=== PATIENT | female | born 1995 | race Caucasian/White ===

== ENCOUNTER 2020-09-06 23:37 | Emergency (ER) | payer BC, SELFPAY ==
[2020-09-07] MEDS ORDERED: Ketorolac Tromethamine 30 MG/ML VIAL ONE (00:10)
[2020-09-07] MEDS ORDERED: Ondansetron ODT 4 MG TAB ONE (00:10)
[2020-09-07] MEDS ORDERED: Ondansetron PF 4 MG/2 ML Vial ONE (00:10)
== END 2020-09-07 00:19 | disposition home or self-care (01) ==
LOC: EDBD → BURERS 23:37
DX: O03.4 Incomplete spontaneous abortion without complication (principal)
CPT/HCPCS: 96372; 99283; J1885; J2405; Q0162